=== PATIENT | male | born 1960 | race Caucasian/White ===

== ENCOUNTER 2019-05-28 21:18 | Inpatient (IN) | payer OTHER ==
[~2019-05-28] VITALS: Ht 182.9 cm; Wt 94.6 kg
[2019-05-28] VITALS: BP 106/79
[2019-05-28 23:45] VITALS: BP 119/80
[2019-05-29] VITALS (13 sets, daily range): BP systolic 93–114; BP diastolic 53–81
[2019-05-29] MEDS ORDERED: KAPSPARGO SPRIN25 MG PO (02:19)
[2019-05-29] MEDS ORDERED: ASA81BEC PO (02:21)
[2019-05-29 05:03] LABS: HEMATOCRIT 43.5 % (42.0-52.0); HEMOGLOBIN 14.6 gm/dL (14.0-18.0); MCHC 33.5 g/dL (28.0-37.0); MCV 89.6 fL (80.0-100.0); RBC 4.85 mil/uL (4.50-6.00); RDW 13.2 % (10.5-14.5); WBC 9.7 thou/uL (4.0-11.0)
[2019-05-29 05:19] LABS: ALBUMIN 3.6 g/dL (3.4-5.0); ANION GAP 10 mmol/L (7-16); BUN 11 mg/dL (7-18); CALCIUM 8.7 mg/dL (8.5-10.1); CHLORIDE 99 mmol/L (98-107); CHOLESTEROL 192 mg/dL (<200); CO2 25 mmol/L (21-32); CREATININE 0.9 mg/dL (0.7-1.3); GLUCOSE 125 mg/dL (74-106); HDL CHOLESTEROL 45 mg/dL (>40); LDL CHOLESTEROL 125 mg/dL (<100); POTASSIUM 3.9 mmol/L (3.5-5.1); SGOT 48 U/L (15-37); SGPT 36 U/L (30-65); SODIUM 134 mmol/L (136-145); TC:HDL 4.3 Ratio (Not establshd); TOTAL BILIRUBIN 0.5 mg/dL (<0.1-1.0); TOTAL PROTEIN 6.6 g/dL (6.4-8.2); TRIGLYCERIDE 111 mg/dL (<150); VLDL 22 mg/dL (<40)
[2019-05-29 05:40] LABS: SERUM ASSESSMENT Clear
[2019-05-29 05:41] LABS: TROPONIN-I 7.56 ng/mL (<0.06)
--- NOTE | 2019-05-29 06:18 | NUR ---
PT ARRIVED UNIT AT ABOUT 2345 POST CARDIAC CATH. PT WAS AWAKE, A/OX4, VITAL SIGNS STABLE, ASSESSMENT CHARTED. GROIN SITE WAS CLEAN, DRY, INTACT UPON ARRIVAL. AT ABOUT 0133 DURING GROIN CHECK, BLEEDING WAS NOTICED. PRESSURE WAS HELD FOR ABOUT 20MINS, HEMOSTASIS AT ABOUT 0153. BORDER MARKED. PTREMAINED STABLE. GROIN SITE WAS SOFT WITH NO HEMATOMA. VITAL SIGNS REMAINED STABLE. ADMISSION COMPLETED. PT REMAINED ASLEEP WITH FAMILY AT BEDSIDE. PT OFF BEDREST AT ABOUT 0430, ASSITED TO THEBATHROOM. POST AMBULATION GROIN CHECK WAS SOFT, NO NOTICEABLE BLEEDING, NO HEMATOMA. PT RESTED IN BED FOR THE REST OF SHIFT. WILL CONTINUE TO MONITOR.
--- NOTE | 2019-05-29 12:59 | EKG ---
[address] [place] [address] ELECTROCARDIOGRAM REPORT Name: YOLANDE VENTURA Room #: 204-P ADM IN M.R.#: [id number] Admission: 05/28/19 Attend Phys: Margo Bahena Discharge: Date of : 62 Report #: [id number] THIS REPORT FOR: //name// [facility] Test Date: 2019-05-29 Test Time: 07:59:03 Pat Name: YOLANDE EVNTURA Department: Room: 204 P Gender: M Edge Plugger: AMITA : 1960 Requested By: Edu Senior Order Number: [id number] MD: Edu Senior Measurements Intervals [place] Rate: 91 P: [place]: QRS: 70 QRSD: 89 T: 101 QT: 345 QTc: 425 Interpretive Statements Atrial fibrillation Probable anteroseptal infarct, old Nonspecific T abnormalities, lateral leads No previous ECG available for comparison Electronically Signed On 05-29-2019 12:59:38 SALES AND DISTRIBUTION CLERK by Edu Senior [email or web address] <ELECTRONICALLY SIGNED> By: Edu Senior MD, [facility] 05/29/19 1259 0759 0759 Edu Senior MD, FACC /EPI
--- NOTE | 2019-05-29 15:37 | NUR ---
pt lying in bed, at side, education done on post cath site care, stent education, and to quite smoking. pt says he won't quit smoking, but said she will strongly encourage it. will reinforce.
[2019-05-30 04:43] VITALS: BP 97/54
--- NOTE | 2019-05-30 06:38 | NUR ---
ASSESSMENTS CHARTED, MEDS GIVEN DOSED. RESTING IN BED DURING SHIFT. UP AT BRET IN ROOM. IN AFIB DURING ENTIRE SHIFT. RECEIVED 2 STENTS IN FINGER WAVER 2 DAYS AGO. HAS A RCA WITH 85 % OCCLUSION THAT THEY WILL STENT AN OUTPATIENT. HAD BOUT OF NAUSEA IN AM BUT WAS SYMPTOM FREE DURING SHIFT. PATIENT WAS TRANSPORTED FROM [place].
[2019-05-30] MEDS ORDERED: LIPITOR40 MG PO (07:30)
[2019-05-30] MEDS ORDERED: METOPROLOL SUCC50 MG PO (07:30)
[2019-05-30] MEDS ORDERED: COZAAR 25 MG TA25 M1 PO (07:30)
[2019-05-30] MEDS ORDERED: PLAVIX 75 MG TA75 MG PO (07:31)
[2019-05-30] MEDS ORDERED: XARELTO20 MG PO (07:31)
--- NOTE | 2019-05-30 08:16 | EKG ---
[address] [address] ELECTROCARDIOGRAM REPORT Name: YOLANDE VENTURA Room #: 204-P ADM IN M.R.#: [id number] Admission: 05/28/19 Attend Phys: Margo Bahena Discharge: Date of : 62 Report #: [id number] THIS REPORT FOR: //name// [facility] Test Date: 2019-05-30 Test Time: 07:37:39 Pat Name: YOLANDE VENTURA Department: Room: 204 P Gender: M Water Truck Driver: Carey MCQUEEN : 1960 Requested By: Edu Senior Order Number: [id number] MD: Harvey Amin Measurements Intervals [place] Rate: 82 P: [place]: QRS: 77 QRSD: 96 T: 115 QT: 369 QTc: 431 Interpretive Statements Atrial fibrillation Paired ventricular premature complexes Anteroseptal infarct, old Electronically Signed On 05-30-2019 8:16:09 COPPER MINER by Harvey Amin [email or web address] <ELECTRONICALLY SIGNED> By: Harvey Amin MD 05/30/19 0816 0737 0737 Harvey Amin MD /ANNA MARIE
[2019-05-30 08:25] VITALS: BP 101/71
[2019-05-30 11:17] VITALS: BP 101/71
--- NOTE | 2019-05-30 11:44 | NUR ---
pt ready to be discharged, waiting Marjara's order. cardiac rehab consult done, pt and both verbalize understanding. xeralto med samples and 1 month supply card given to pt. education sheets given.
[2019-05-30 12:07] VITALS: BP 117/69
--- NOTE | 2019-05-30 12:57 | 2DMMODE ---
[facility] [address] [place] [address] 2 D/M-MODE ECHOCARDIOGRAM Name: YOLANDE VENTURA Room #: 204-P [facility] IN M.R.#: [id number] Admission: 05/28/19 Attend Phys: Margo Gonzalez Discharge: 05/30/19 Date of : 62 Report #: [id number] THIS REPORT FOR: //name// APPROVED REPORT Study performed: 05/30/2019 10:28:23 EXAM: Comprehensive 2D, Doppler, and color-flow Echocardiogram Patient Location: Bedside Room #: 204 Status: routine BSA: 2.17 HR: 85 bpm BP: 101/71 mmHg Rhythm: Atrial Fibrillation Other Information Study Quality: Adequate Risk Factors: Cardiac Risk Factors: Smoking, HTN Indications Atrial Fibrillation Dyspnea Chest Pain Hypertension/HDD CAD with Stent 2D Dimensions IVSd: 9.76 (7-11mm) LVOT Diam: 20.00 (18-24mm) LVDd: 43.28 mm PWd: 10.62 (7-11mm) Ascending Ao: 30.12 (22-36mm) LVDs: 32.02 (25-40mm) Aortic Root: 28.25 mm LV Single Plane 4CH: 48.85 % LV Single Plane 2CH: 57.50 % Biplane EF: 53.5 % Volumes Left Atrial Volume (Systole) Single Plane 4CH: 67.09 mL Single Plane 2CH: 65.16 mL LA ESV Index: 33.00 mL/m2 Aortic Valve [facility] [address] [place] [address] 2 D/M-MODE ECHOCARDIOGRAM Name: YOLANDE VENTURA Room #: 204-P [facility] IN ..#: [id number] Admission: 05/28/19 Attend Phys: Margo Gonzalez Discharge: 05/30/19 Date of : 62 Report #: [id number] AoV Peak Edward.: 1.42 m/s AO Peak Gr.: 10.07 mmHg LVOT Max P.35 mmHg LVOT Max V: 0.91 m/s CHARLA Vmax: 2.03 cm2 Pulmonary Valve PV Peak Edward.: 0.88 m/s PV Peak Gr.: 3.09 mmHg Tricuspid Valve TR Peak Edward.: 2.35 m/s RAP Estimate: 10.00 mmHg TR Peak Gr.: 22.39 mmHg PA Pressure: 33.00 mmHg Left Ventricle The left ventricle is normal size. Anterior hypokinesis. There is normal left ventricular wall thickness. Left ventricular systolic function is mild to moderately decreased. LVEF is 45% This study is not technically sufficient to allow evaluation of the LV diastolic function due to atrial fibrillation. Right Ventricle The right ventricle is normal size. The right ventricular systolic function is normal. Atria The left atrium size is normal. The right atrium size is normal. Aortic Valve The aortic valve mildly calcified. No aortic regurgitation is present. There is no aortic valvular stenosis. Mitral Valve The mitral valve is normal in structure. Trace to mild mitral regurgitation. No evidence of mitral valve stenosis. Tricuspid Valve The tricuspid valve is normal in structure. Trace to mild tricuspid regurgitation. Pulmonary artery pressure is 33 mmHg. Pulmonic Valve The pulmonary valve is normal in structure. There is no pulmonic valvular regurgitation. Great Vessels The aortic root is normal in size. The ascending aorta is normal in [facility] [address] [place] [address] 2 D/M-MODE ECHOCARDIOGRAM Name: EUFAULAYOLANDE Room #: 204-P [facility] IN M.R.#: [id number] Admission: 05/28/19 Attend Phys: Margo Gonzalez Discharge: 05/30/19 Date of : 62 Report #: [id number] size. IVC is dilated and collapses <50% with inspiration. Pericardium There is no pericardial effusion. <Conclusion> Left ventricular systolic function is mild to moderately decreased. Anterior wall hypokinesis. LVEF is 45% The aortic valve mildly calcified. No aortic regurgitation or stenosis The mitral valve is normal in structure. Trace to mild mitral regurgitation. Trace to mild tricuspid regurgitation. Pulmonary artery pressure of 33 mmHg. There is no pericardial effusion. <ELECTRONICALLY SIGNED> By: Edu Senior MD, [facility] 05/30/19 1256 1256 1256 Edu Senior MD, FACC /INF
--- NOTE | 2019-06-03 09:28 | HC ---
[facility] [place] [address] CONSULTATION Name: YOLANDE VENTURA Room #: 204-P [facility] IN M.R.#: [id number] Admission: 05/28/19 Attend Phys: Margo Bahena Discharge: 05/30/19 Date of : 62 Report #: [id number] THIS REPORT FOR: //name// CC: FAM unknown Margo Bahena REASON FOR CONSULTATION: Chest pain, myocardial infarction. HISTORY OF PRESENT ILLNESS: The patient is a 63-year-old gentleman with a history of a myocardial infarction about 10 years ago. His history includes tobacco dependency and strong family history of premature coronary artery disease. Around 6:00 or 7:00 tonight, he developed midsternal chest pain with shortness of breath. He presented to [facility] Emergency Department where an EKG at 20:[address] segment elevation inferiorly sizable septal Q-waves. He was given a bolus of heparin and transported by ambulance, although about 10 minutes out at [facility] developed ventricular fibrillation which was treated urgently with 200 joule of shock which reverted him back to sinus rhythm. He currently has ongoing midsternal pain. ALLERGIES: There are no known drug allergies. MEDICATIONS: Include aspirin, metoprolol succinate 25 mg daily. PAST MEDICAL HISTORY: Medical records have been reviewed and include a history of coronary artery disease with prior stenting 10 years ago, unknown lipid status, hypertension, tonsillectomy, remote back surgery, right jaw fracture. SOCIAL HISTORY: He is an ongoing smoker. He works as a marcos. FAMILY HISTORY: Notable for premature coronary artery disease. REVIEW OF SYSTEMS: All systems negative except as that noted above. PHYSICAL EXAMINATION: GENERAL: Reveals a gentleman in ongoing distress. VITAL SIGNS: Blood pressure is 113/78, heart rate of 60 and regular, respirations unlabored at 18. HEENT: There are neither xanthelasma, subcutaneous xanthomata, oral mucosal or digital cyanosis or kyphoscoliosis present. CHEST: Clear to auscultation and percussion. CARDIAC: Regular rate and rhythm with normal S1, S2. No murmurs or rubs. ABDOMEN: Soft and nontender. EXTREMITIES: Without cyanosis, clubbing or edema. Radial pulses are 2+. NEUROLOGIC: He is alert with a nonfocal exam. LABORATORY DATA: EKG as detailed above. Creatinine 1.13, sodium 137, potassium 3.4, magnesium 1.9, platelet count 282. Hematocrit [address]. [address] [address] CONSULTATION Name: YOLANDE VENTURA Room #: 204-P [facility] IN M.R.#: [id number] Admission: 05/28/19 Attend Phys: Margo Bahena Discharge: 05/30/19 Date of : 62 Report #: [id number] IMPRESSION: 1. Acute anterior myocardial infarction. 2. History of coronary artery disease with remote stenting. 3. Dyslipidemia. 4. Tobacco dependency. RECOMMENDATIONS: 1. Urgent coronary angiography. 2. No contraindications to dual antiplatelet therapy. 3. I have discussed the angiographic procedure in detail including its associated risks. After a thorough discussion of the procedure, its risks and alternatives and after answering his questions, he is agreeable to proceeding. <ELECTRONICALLY SIGNED> By: Edu Senior MD, [facility] 06/03/19 0928 2206 0014 Edu Senior MD, FACC /nt
--- NOTE | 2019-06-14 10:31 | CATHLAB ---
[address] [place] [address] INVASIVE PROCEDURE REPORT Name: YOLANDE VENTURA Room #: 204-P [facility]#: [id number] Admission: 05/28/19 Attend Phys: Margo Gonzalez Discharge: 05/30/19 Date of : 62 Report #: [id number] THIS REPORT FOR: //name// Accession No. : [id number] Patient Name / ID : LORENZO Lobato / [id number] Exam Date : 05/28/2019 21:10:01 ( Approved ) Study Comment : Sex / Age : M / 58Y Creator : Sandeep Thompson Dictator : Hall Tender : Field Agent : Edu Senior MD Approver2 : Report Date : 05/28/2019 23:38:59 My Comment : APPROVED REPORT Study performed: 05/28/2019 21:10:01 Patient Details Patient Status: ED Room #: The patient is a 58 year-old male Event Personnel Edu Senior Bods Developer, Lyubov Guillen RN RN, Mike Kramer RTR Donna Adams David Monitor Procedures Performed Left Heart Cath w/or w/o Coronaries [id number] [facility] MARKO Revasc AMI Total/Sub Single LAD C9606 AMIREVSING Indication Chest pain Procedure Narrative The Right Groin^ was infiltrated with 1% Lidocaine subcutaneous anesthesia. A PINNACLE 6FR Sheath #[id number] sheath was inserted into the RFA^. Coronary angiography was performed using coronary diagnostic catheters. The right coronary system was accessed and visualized with a JR4 catheter. The left coronary system was accessed and visualized with a JL4 catheter. The left ventricle was accessed and visualized with a PIGTAIL catheter. Left ventricular/Aortic Valve gradient assessed via catheter pullback. [facility] [address] [place] [address] INVASIVE PROCEDURE REPORT Name: YOLANDE VENTURA Room #: 204-P [facility]#: [id number] Admission: 05/28/19 Attend Phys: Margo Gonzalez Discharge: 05/30/19 Date of : 62 Report #: [id number] ventriculogram was performed in 30 degree projection. Closure device was deployed with a 6 Fr MYNXGRIP 6/7F #[id number]. The patient tolerated the procedure well and there were no complications associated with the procedure. There was no hematoma. Intraoperative Conscious Sedation Sedation start time: 22.06 Case end Time: 23.22 Fentanyl 25 mcg Versed 0.5 mg Fluoro Time: 16.19 minutes Dose: DAP 40448.00 cGycm2 2735 mGy Contrast Type and Amount: Visipaque 270 ml Coronary Angiography The patient's coronary anatomy is right dominant. Diagnostic Cath Left Main Mild distal left main plaquing LAD 95% ostial LAD stenosis Diagonal 2 Large first diagonal branch with 99% stenosis, EFRAIN 1 flow Circumflex Small nondominant circumflex comprised of a small single marginal branch OM1 Mild proximal and mid vessel plaquing Right Coronary Large dominant right coronary previously stented in its midportion. There is a variable 75-85% proximal to mid, long right coronary stenosis Left Ventriculography The left ventricle is normal in size with abnormal contractility. The left ventricular ejection fraction is estimated to be 40%. Left ventricular wall motion abnormalities are present. There is no mitral insufficiency. Mid to distal anterolateral wall and apical hypokinesis. Hemodynamics The aortic pressure is 108/61 mmHg with a mean of 81 mmHg. The left ventricular pressure is 103/11 mmHg with a mean of mmHg. The left ventricular end diastolic pressure is 22 mmHg. There was no gradient across the aortic valve upon pullback. Pullback from the left ventricle to the aorta revealed no gradient across the aortic valve. PCI Technique Lesion Anticoagulation was achieved with Heparin, Integrilin. Patient was preloaded with Effient. Percutaneous coronary intervention was performed on the proximal diagonal branch. The lesion stenosis prior to intervention was 99% with EFRAIN 1 flow. A LAUNCHER 6FR EBU 3.5 #[id number] Guide Catheter was used to engage the left main ostium. A Luge Wire .014 x 182CM #[id number] Interventional Guidewire was used [address] [address] INVASIVE PROCEDURE REPORT Name: LORENZOYOLANDE Luis Alfredo Room #: 204-P [facility]#: [id number] Admission: 05/28/19 Attend Phys: Margo Smiley Lisa Discharge: 05/30/19 Date of : 62 Report #: [id number] to cross the lesion. BALLOON DILATION A Balloon catheter Euphora RX 2.5 x 10 #[id number] was inserted and inflated up to 10.00atm for 23seconds. Additional Inflation: 8.00atm for 9seconds. Additional Inflation: 8.00atm for 25seconds. ADDL- STENT DEPLOYMENT A drug-eluting stent RESOLUTE PARISA RX 2.5 X 18 #[id number] was inserted and inflated up to 12.00atm for 30seconds. POST STENT DEPLOYMENT BALLOON DILATION A Balloon catheter TREK NC RX 2.5 X 15 #[id number] was inserted and inflated up to 18.00atm for 30seconds. Additional Inflation: 18.00atm for 24seconds. Final angiography reveals 0 % stenosis with EFRAIN 3 flow. PCI Technique Lesion 2 Percutaneous Coronary Intervention was performed on the ostial left anterior descending. The lesion stenosis prior to intervention was 95% with EFRAIN 3 flow. A LAUNCHER 6FR EBU 3.5 #[id number] Guide Catheter was used to engage the left main ostium. A Luge Wire .014 x 182CM #[id number] Interventional Guidewire was used to cross the lesion. Balloon Dilation A Balloon catheter Euphora RX 2.25 x 15 #[id number] was inserted and inflated up to 14.00atm for 33seconds. Additional Inflation: 8.00atm for 13seconds. Additional Inflation: 8.00atm for 21seconds. Stent Deployment A drug-eluting stent RESOLUTE PARISA RX 2.5 X 26 #[id number] was inserted and inflated up to 14.00atm for 31seconds. Post Stent Deployment Balloon Dilation A Balloon catheter TREK NC RX 2.5 X 15 #[id number] was inserted and inflated up to 16.00atm for 27seconds. Additional Inflation: 16.00atm for 28seconds. Additional Inflation: 16.00atm for 23seconds. Final angiography reveals 0 % stenosis with EFRAIN 3 flow. Conclusion 1. Moderate left ventricular dysfunction with hypokinesis involving the mid to distal anterolateral wall and apex. Ejection fraction 40%. 2. Mild distal left main plaquing 3. Severe ostial LAD disease treated with a 2.5 x 26 mm Resolute stent 4. Subtotaled first diagonal branch treated with a 2.5 x 18 mm Resolute stent [facility] [place] [address] INVASIVE PROCEDURE REPORT Name: YOLANDE VENTURA Room #: 204-P [facility]#: [id number] Admission: 05/28/19 Attend Phys: Margo Gonzalez Discharge: 05/30/19 Date of : 62 Report #: [id number] 5. Severe proximal to mid right coronary disease. Planned staged intervention 6. Small nondominant circumflex with mild plaquing Recommendations Smoking Cessation Cardiac Rehabilitation Referral Aggressive Medical Therapy By: 09 1030 Edu Senior MD, FACC /TAMIKO
== END 2019-05-30 12:20 | disposition home or self-care (01) | DRG 246 ==
LOC: TBA 21:18 → 2N 23:54 → ENTRNSPT 05-30 12:07 → 2N 05-30 12:20
PROVIDERS: Internal Medicine; ADMIT Hospitalist
DX: I21.09 ST elevation (STEMI) myocardial infarction involving other coronary artery of anterior wall (principal); I49.01 Ventricular fibrillation; I25.5 Ischemic cardiomyopathy; E78.5 Hyperlipidemia, unspecified; F17.200 Nicotine dependence, unspecified, uncomplicated; I48.91 Unspecified atrial fibrillation; I25.10 Atherosclerotic heart disease of native coronary artery without angina pectoris; I10 Essential (primary) hypertension; R61 Generalized hyperhidrosis; Z79.891 Long term (current) use of opiate analgesic; Z90.89 Acquired absence of other organs; Z98.1 Arthrodesis status; Z95.5 Presence of coronary angioplasty implant and graft; Z79.01 Long term (current) use of anticoagulants; I25.2 Old myocardial infarction; Z82.49 Family history of ischemic heart disease and other diseases of the circulatory system; Z79.82 Long term (current) use of aspirin; Z79.899 Other long term (current) drug therapy
CPT/HCPCS: 10797

== ENCOUNTER 2019-06-10 06:38 | Observation (INO) | payer OTHER ==
[~2019-06-10] VITALS: Ht 193 cm; Wt 94.8 kg
[2019-06-10] VITALS (12 sets, daily range): BP systolic 102–138; BP diastolic 51–86
[~2019-06-10 06:38] MED LIST: ASA81BEC PO; COZAAR 25 MG TA25 M1 PO; KAPSPARGO SPRIN25 MG PO; LIPITOR40 MG PO; METOPROLOL SUCC50 MG PO; PLAVIX 75 MG TA75 MG PO; XARELTO20 MG PO
--- NOTE | 2019-06-10 08:03 | EKG ---
[place] [address] [address] [place] [address] ELECTROCARDIOGRAM REPORT Name: YOLANDE VENTURA Room #: [facility]#: [id number] Admission: 06/10/19 Attend Phys: Edu Senior MD, Discharge: Date of : 62 Report #: [id number] THIS REPORT FOR: //name// [facility] Test Date: 2019-06-10 Test Time: 07:34:44 Pat Name: YOLANDE VENTURA Department: Room: Gender: M Mop Handle Assembler: rt : 1960 Requested By: Edu Senior Order Number: [id number] MD: Edu Senior Measurements Intervals [place] Rate: 67 P: 73 [place]: 146 QRS: 71 QRSD: 94 T: 96 QT: 398 QTc: 420 Interpretive Statements Sinus rhythm Probable anteroseptal infarct, old Nonspecific T abnormalities, lateral leads Compared to ECG 05/30/2019 07:37:39 T-wave abnormality is less pronounced Atrial fibrillation no longer present Ventricular premature complex(es) no longer present Electronically Signed On 06-10-2019 8:03:28 MANAGER PAPER by Edu Senior [email or web address] <ELECTRONICALLY SIGNED> By: Edu Senior MD, [facility] 06/10/19 0803 0734 0734 Edu Senior MD, [facility] /EPI
[2019-06-10] MEDS ORDERED: ASA81BEC PO (09:28)
[2019-06-10] MEDS ORDERED: XARELTO20 MG PO (09:28)
--- NOTE | 2019-06-10 09:30 | CATHLAB ---
[facility] [address] [place] [address] INVASIVE PROCEDURE REPORT Name: YOLANDE VENTURA Room #: 160-1 [facility] IN [facility]#: [id number] Admission: 06/10/19 Attend Phys: Edu Senior, Discharge: Date of : 62 Report #: [id number] THIS REPORT FOR: //name// APPROVED REPORT Study performed: 06/10/2019 07:34:02 Patient Details Patient Status: Out-Patient Room #: The patient is a 58 year-old male Event Personnel Edu Senior Superintendent Automotive, Francesca Perla RN RN, Trupti Kendrick RTR, Donna Quiroga David Monitor, Geovanna Wolff RN vulcanized fiber unit operator Performed Coronary Angiography Only [id number] [facility] Place w/wo Plasty Single RCA [id number] Indication Chest pain Procedure Narrative The Right Groin^ was infiltrated with 1% Lidocaine subcutaneous anesthesia. A PINNACLE 6FR Sheath #[id number] sheath was inserted into the RFA^. Coronary angiography was performed using coronary diagnostic catheters. The left coronary system was accessed and visualized with a 6FR JL4 #[id number] catheter. Closure device was deployed with a 6 Fr MYNXGRIP 6/7F #[id number]. The patient tolerated the procedure well and there were no complications associated with the procedure. Intraoperative Conscious Sedation Sedation start time: 8.05 Case end Time: 8.54 Fentanyl 50 mcg Versed 1 mg Fluoro Time: 11.44 minutes Dose: DAP 80438.00 cGycm2 1445 mGy Contrast Type and Amount: Omnipaque 170 ml Coronary Angiography The patient's coronary anatomy is right dominant. [facility] [address] [place] [address] INVASIVE PROCEDURE REPORT Name: YOLANDE VENTURA Room #: 160-1 [facility] IN [facility]#: [id number] Admission: 06/10/19 Attend Phys: Edu Senior, Discharge: Date of : 62 Report #: [id number] Diagnostic Cath Left Main Minimal distal left main plaquing LAD Widely patent ostial and proximal LAD stent. Diagonal 1 Widely patent first diagonal branch stent. 40-50% ostial diagonal branch stenosis proximal to the stent. Circumflex Small nondominant circumflex comprised of a single, small mid vessel marginal branch Right Coronary Dominant right coronary previously stented in its midportion with severe, along IntraStent stenosis (80-95%) R PDA Large posterior descending with mild mid vessel plaquing RPLV Moderate posterior lateral branch, angiographically normal Left Ventriculography Left Ventriculography was not performed. Hemodynamics The aortic pressure is 127/65 mmHg with a mean of 91 mmHg. PCI Technique Lesion Anticoagulation was achieved with Heparin, Integrilin. Patient was preloaded with Plavix. Percutaneous coronary intervention was performed on the mid right coronary. The lesion stenosis prior to intervention was 95% with EFRAIN 3 flow. A LAUNCHER 6FR JR 4 #[id number] Guide Catheter was used to engage the right coronary ostium. A Luge Wire .014 x 182CM #[id number] Interventional Guidewire was used to cross the lesion. BALLOON DILATION A Balloon catheter TREK NC RX 3.0 X 15 #[id number] was inserted and inflated up to 12.00atm for 31seconds. Additional Inflation: 14.00atm for 25seconds. Additional Inflation: 13.00atm for 24seconds. 13ATM for 30sec 16ATM for 30 sec Multiple inflations with a noncompliant balloon throughout the mid and proximal right coronary STENT DEPLOYMENT A drug-eluting stent RESOLUTE PARISA RX 3.0 X 38 #[id number] was inserted and inflated up to 18.00atm for 30seconds. This 38 mm stent did not completely cover the stenosis proximally, this was then stented in sequence with a second Resolute stent POST STENT DEPLOYMENT BALLOON DILATION A Balloon catheter TREK NC RX 3.5 X 15 #[id number] was inserted and inflated up to 12.00atm for 35seconds. Additional Inflation: 18.00atm [address] [address] INVASIVE PROCEDURE REPORT Name: YOLANDE VENTURA Room #: 160-1 [facility] IN .R.#: [id number] Admission: 06/10/19 Attend Phys: Edu Senior, Discharge: Date of : 62 Report #: [id number] for 30seconds. Additional Inflation: 22.00atm for 30seconds. Final angiography reveals 0 % stenosis with EFRAIN 3 flow. PCI Technique Lesion 2 Percutaneous Coronary Intervention was performed on the proximal RCA, in sequence to the mid RCA stent. A LAUNCHER 6FR JR 4 #[id number] Guide Catheter was used to engage the ostium. A Luge Wire .014 x 182CM #[id number] Interventional Guidewire was used to cross the lesion. Stent Deployment A drug-eluting stent RESOLUTE PARISA RX 3.5 X 18 #[id number] was inserted and inflated up to 14atm for 30seconds. Repeat angiography revealed the following post-stent deployment results: 0% residual stenosis. Post Stent Deployment Balloon Dilation A Balloon catheter TREK NC RX 3.5 X 15 #[id number] was inserted and inflated up to 22atm for 32seconds. Additional Inflation: 22atm for 30seconds. Additional Inflation: 22atm for 30seconds. Final angiography reveals 0 % stenosis with EFRAIN 3 flow. Conclusion 1. Mild distal left main plaquing 2. Widely patent ostial LAD and first diagonal branch stents, both placed May 28, 2019 in the setting of a STEMI 3. Small, normal nondominant circumflex 4. Severe proximal to mid right coronary stenoses treated in sequence with a 3.0 x 38 mm Resolute stent and proximal to this a 3.5 x 18 mm Resolute stent. Both stents were postdilated with a 3.5 mm noncompliant balloon Recommendations Smoking Cessation Cardiac Rehabilitation Referral Aggressive Medical Therapy Medications Administered DANIAL Inhibitor (any) Aspirin (any) Beta Mane (any) [address] [address] INVASIVE PROCEDURE REPORT Name: LORENZOYOLANDE L Room #: 160-1 [facility] IN M.R.#: [id number] Admission: 06/10/19 Attend Phys: Edu Senior, Discharge: Date of : 62 Report #: [id number] Non-Statin (any) Clopidogrel <ELECTRONICALLY SIGNED> By: Edu Senior MD, FACC 06/10/19929 9 9 Edu Senior MD, FACC /INF
--- NOTE | 2019-06-10 09:59 | EKG ---
[address] [address] ELECTROCARDIOGRAM REPORT Name: YOLANDE VENTURA Room #: 215-[facility]..#: [id number] Admission: 06/10/19 Attend Phys: Edu Senior MD, Discharge: Date of : 62 Report #: [id number] THIS REPORT FOR: //name// [facility] Test Date: 2019-06-10 Test Time: 09:45:49 Pat Name: YOLANDE VENTURA Department: Room: [facility] Gender: M Fixed Route Bus Operator: Rosa ALICIA : 1960 Requested By: Edu Senior Order Number: [id number] MD: Harvey Amin Measurements Intervals [place] Rate: 55 P: 64 ME: 165 QRS: 79 QRSD: 95 T: 92 QT: 410 QTc: 393 Interpretive Statements Sinus rhythm Anteroseptal infarct, age indeterminate Compared to ECG 06/10/2019 07:34:44 T-wave abnormality no longer present Myocardial infarct finding still present Electronically Signed On 06-10-2019 9:59:12 LIMNOLOGY TEACHER by Harvey Amin [email or web address] <ELECTRONICALLY SIGNED> By: Harvey Amin MD 06/10/19 0959 Harvey Amin MD /EPI
--- NOTE | 2019-06-10 16:34 | NUR ---
PT CARE ASSUMED APPROX 0915. ASSESSMENTS CHARTED. DENIES PAIN AND SOA. VSS. RIGHT GROIN POST CATH SITE C/D/I. POST CATH VSS. PT UP WITH STEADY GAIT AFTER ORDERED BEDREST COMPLETED. AT BEDSIDE. PT AND SPOUSE DENY QUESTIONS OR CONCERNS REGARDING POC OR POST PROCEDURE PROTOCOLS. NO DISTRESS NOTED.
[2019-06-11 03:15] VITALS: BP 106/62
[2019-06-11 04:50] LABS: HEMATOCRIT 42.8 % (42.0-52.0); HEMOGLOBIN 14.4 gm/dL (14.0-18.0); MCH 30.1 pg (26.0-34.0); MCHC 33.6 g/dL (28.0-37.0); MCV 89.5 fL (80.0-100.0); RBC 4.78 mil/uL (4.50-6.00); RDW 12.7 % (10.5-14.5); WBC 7.1 thou/uL (4.0-11.0)
[2019-06-11 04:52] LABS: ALBUMIN 3.6 g/dL (3.4-5.0); CALCIUM 8.8 mg/dL (8.5-10.1); POTASSIUM 4.5 mmol/L (3.5-5.1); TOTAL BILIRUBIN 0.4 mg/dL (<0.1-1.0); TOTAL PROTEIN 6.7 g/dL (6.4-8.2); TROPONIN-I 0.25 ng/mL (<0.06)
--- NOTE | 2019-06-11 05:40 | NUR ---
ASSESSMENTS CHARTED. MEDS GIVEN DOCUMENTED. PATIENT RESTING IN BED DURING SHIFT, NO COMPLAINTS OF PAIN OR CONCERNS. PATIENT HAD GONE TO SERVICE CONTROL OPERATOR DURING DAY, RECEIVED TWO STENTS TO RCA. OFF BEDREST AT START OF SHIFT, UP AT BRET IN ROOM. PLAN OF CARE IS TO GO HOME IN AM. VSS.
[2019-06-11 07:50] VITALS: BP 113/69
--- NOTE | 2019-06-11 09:44 | EKG ---
[address] [place] [address] ELECTROCARDIOGRAM REPORT Name: YOLANDE VENTURA Room #: 215-[facility] M..#: [id number] Admission: 06/10/19 Attend Phys: Edu Senior MD, Discharge: Date of : 62 Report #: [id number] THIS REPORT FOR: //name// [facility] Test Date: 2019-06-11 Test Time: 07:50:52 Pat Name: YOLANDE VENTURA Department: Room: 215 Gender: M Dry Pan Charger: AMITA : 1960 Requested By: Edu Senior Order Number: [id number] MD: Edu Senior Measurements Intervals [place] Rate: 59 P: 69 HI: 159 QRS: 78 QRSD: 90 T: 96 QT: 405 QTc: 402 Interpretive Statements Sinus rhythm Anteroseptal infarct, age indeterminate Compared to ECG 06/10/2019 09:45:49 No significant changes Electronically Signed On 06-11-2019 9:44:26 CHANGE MANAGEMENT DIRECTOR by Edu Senior [email or web address] <ELECTRONICALLY SIGNED> By: Edu Senior MD, [facility] 06/11/19 0944 0750 0750 Edu Senior MD, FAC /EPI
[2019-06-11 09:51] VITALS: BP 113/69
[2019-06-11 10:02] VITALS: BP 113/69
--- NOTE | 2019-06-11 11:11 | NUR ---
PT CARE ASSUMED APPROX 0700. ASSESSMENT CHARTED. PT DENIES PAIN AND SOA. VSS. RIGHT GROIN POST CATH SITE C/D/I. UP WITH STEADY GAIT. PT DISCHARGED AT THIS TIME. DISCHARGE EDUCATION REVIEWED WITH PT AND SPOUSE. BOTH DENY QUESTIONS AND CONCERNS REGARDING POST HOSPTIAL CARES AND POST CATH INSTRUCTIONS. IV OUT, TELE BOX OFF. PT ESCORTED OUT BY NURSING STAFF.
--- NOTE | 2019-06-13 09:33 | D ---
[facility] [place] [address] DISCHARGE SUMMARY Name: YOLANDE VENTURA Room #: 215-P [facility] Dickson Lucio#: [id number] Admission: 06/10/19 Attend Phys: Edu Senior MD, Discharge: 06/11/19 Date of : 62 Report #: [id number] THIS REPORT FOR: //name// CC: Edu Garcia Hurley DISCHARGE DIAGNOSES: 1. Unstable angina with stenting of the right coronary. 2. Moderate ischemic cardiomyopathy. 3. Recent myocardial infarction with left anterior descending and ramus branch stenting. 4. Dyslipidemia. 5. Tobacco dependency. 6. Gloria-infarct atrial fibrillation, converted to sinus rhythm. HISTORY OF PRESENT ILLNESS: For the complete details of the history of present illness, see dictated history and physical. Briefly, the patient is a 58-year-old gentleman who presented with an anterior myocardial infarction on 05/28/2019. He was found to have critical first diagonal branch and ostial LAD disease, both of which were stented. There was severe mid dominant right coronary artery disease was identified, although there was EFRAIN 3 flow and given the complexity of the LAD diagonal branch intervention, he was treated medically with plans for possible percutaneous intervention. The patient was discharged in atrial fibrillation, although has had converted pharmacologically a couple of days following his infarct. He is now admitted with progressive exertional breathlessness and chest pain. HOSPITAL COURSE: The patient was readmitted due to recurrent anginal type chest pains, reminiscent to his infarct pain. He has known very severe mid right coronary artery disease, which was intervened upon. He was taken to coronary angiography. The LAD and diagonal branch stents were widely patent. There were very severe proximal right coronary artery disease within a previously placed mid right coronary stent. This was ballooned and then re-stented distally with a 3.0 mm stent and then more proximally with a 3.5 mm stent, both stents postdilated with a 3.5 noncompliant balloon. His post-procedural course was uneventful. He was treated with aspirin, heparin, Plavix and aspirin in the gloria-procedural setting and ambulating with good groin hemostasis at the time of discharge. DISCHARGE MEDICATIONS: Discharge medicines were reconciled. Discharge medicines include aspirin, atorvastatin 40 mg daily, Plavix 75 mg daily, losartan 25 mg daily, metoprolol 50 mg daily and Xarelto 20 mg daily to be discontinued on 06/29/2019. Arrangements were made for followup with myself in 4-6 weeks. Reassess left ventricular systolic function by echocardiography in [address] [address] DISCHARGE SUMMARY Name: YOLANDE VENTURA Room #: 215-P [facility]#: [id number] Admission: 06/10/19 Attend Phys: Edu Senior MD, Discharge: 06/11/19 Date of : 62 Report #: [id number] DISCHARGE DIET: Low fat, low cholesterol, heart healthy. DISCHARGE INSTRUCTIONS: Smoking cessation counseling was performed. Followup with Dr. Jose Pond as previously directed. DISCHARGE CONDITION: Stable and improved. <ELECTRONICALLY SIGNED> By: Edu Senior MD, FACC 06/13/19 0933 0914 0942 Edu Senior MD, FACC /nt
== END 2019-06-11 10:24 | disposition home or self-care (01) ==
LOC: CATH 06:38 → TBACV 08:30 → CATH 09:02 → 2N 09:58 → CATH 18:38 → 2N 06-11 10:24
PROVIDERS: ADMIT Internal Medicine
DX: I20.0 Unstable angina (principal); I25.5 Ischemic cardiomyopathy; I10 Essential (primary) hypertension; I25.2 Old myocardial infarction; E78.5 Hyperlipidemia, unspecified; F17.210 Nicotine dependence, cigarettes, uncomplicated; I48.91 Unspecified atrial fibrillation

== ENCOUNTER → 2021-01-01 | Outpatient (CLI) | payer OTHER | LOC: SJCVCIMAG 07:34 | PROVIDERS: ATTEND Internal Medicine | DX: I08.0 Rheumatic disorders of both mitral and aortic valves (principal); I25.110 Atherosclerotic heart disease of native coronary artery with unstable angina pectoris; I42.9 Cardiomyopathy, unspecified; I48.0 Paroxysmal atrial fibrillation; Z79.899 Other long term (current) drug therapy ==

== ENCOUNTER → 2021-03-08 | Outpatient (CLI) | payer OTHER | LOC: SJCVCIMAG 07:13 | PROVIDERS: ATTEND Internal Medicine | DX: R00.0 Tachycardia, unspecified (principal); I51.81 Takotsubo syndrome; I25.10 Atherosclerotic heart disease of native coronary artery without angina pectoris; E78.5 Hyperlipidemia, unspecified; I10 Essential (primary) hypertension; I48.0 Paroxysmal atrial fibrillation; I42.9 Cardiomyopathy, unspecified; Z98.61 Coronary angioplasty status; Z82.49 Family history of ischemic heart disease and other diseases of the circulatory system; F17.200 Nicotine dependence, unspecified, uncomplicated; Z79.82 Long term (current) use of aspirin; Z79.899 Other long term (current) drug therapy ==